=== PATIENT | male | born 1940 | race Caucasian/White ===

== ENCOUNTER 2017-03-13 07:01 | Day surgery (SDC) | payer OTHER ==
[2017-03-13] MEDS ORDERED: ceFAZolin 2 GM/DEXTROSE 100 ML IV ONE (07:22)
[2017-03-13] MEDS ORDERED: LIDOCAINE 1% 2 ML INJ ID PRN (07:29)
[2017-03-13] MEDS ORDERED: LR 1,000 ML IV ONE (07:29)
[2017-03-13] MEDS ORDERED: BUPIVACAINE 0.5% 30 ML SDV ONE (08:20)
[2017-03-13] MEDS ORDERED: MIDAZOLAM 2 MG/2 ML VIAL IVP ONE (08:39)
[2017-03-13] MEDS ORDERED: MIDAZOLAM 2 MG/2 ML VIAL ONE (08:40)
--- NOTE | 2017-03-13 08:40 | PDANEPAE ---
ANE History of Present Illness ventral hernia ANE Past Medical History Past Medical History: htn, aflutter, asthma,gout - Cardiovascular History Hx Hypertension: Yes Hx Arrhythmias: Yes Hx Chest Pain: No Hx Coronary Artery / Peripheral Vascular Disease: No Hx CHF / Valvular Disease: No Hx Palpitations: No Cardiovascular History Comment: A FLUTTER- RESOLVED W ABLATION 08/2014 - ASYMPTOM[address]IC. CT -'BORDERLINE CARDIOMEGALY' - Pulmonary History Hx COPD: No Hx Asthma/Reactive Airway Disease: Yes Hx Recent Upper Respiratory Infection: No Hx Oxygen in Use at Home: No Hx Sleep Apnea: No Sleep Apnea Screening Result - Last Documented: Positive Pulmonary History Comment: INFLAMMATION OF LUNGS OCC, POSS ASTHMA- INHALERS PRN. DENIES SLEEP APNEA- DID SUPPL O2 FOR A WHILE- LOST WT- DOESNT USE NOW. DENIES SOB W STAIRS - Neurologic History Hx Cerebrovascular Accident: No Hx Seizures: No Hx Dementia: No Neurologic History Comment: VIVAR, MIGRAINES - Endocrine History Hx Diabetes: No - Renal History Hx Renal Disorders: Yes Renal History Comment: BPH. 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 POLYP REM. CONSTIPATION OCC - Other Health History Other Health History: OA. GOUT - Chronic Pain History Chronic Pain: No - Surgical History Prior Surgeries: R BETH. 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 ABLATION FOR A FLUTTER X2. ING HERNIA COOPER ING & [facility]. FELL OFF LADDER- REP SEVERED ARTERY 2010. TURP . SCOPE R KNEE ANE Review of Systems - Exercise capacity METS (RN): 4 METS ANE Patient History - Allergies Allergies/Adverse Reactions: doxycycline Allergy (Intermediate, Verified 01/17/15 10:09) Other-Enter Comments sulfamethoxazole [From Bactrim] Allergy (Intermediate, Verified 01/17/15 10:09) Rash trimethoprim [From Bactrim] Allergy (Intermediate, Verified 01/17/15 10:09) Rash HORSE SERUM Allergy (Severe, Uncoded 01/17/15 10:09) Other-Enter Comments TAPE Allergy (Mild, Uncoded 01/17/15 10:09) Other-Enter Comments - Home Medications Home Medications: Albuterol [Proventil Inhaler HFA (*)] 1 - 2 puffs IH Q4H PRN 01/17/15 [Last Taken 08/22/16] Atorvastatin Calcium [Lipitor 20 mg (*)] 20 mg PO DAILY 01/17/15 [Last Taken 07:00] Beclomethasone Qvar 80 [Qvar 80 (*)] 1 - 2 puffs IH HS PRN 01/17/15 [Last Taken 02/20/17] Finasteride [Proscar 5 MG (*)] 5 mg PO DAILY 01/17/15 [Last Taken 03/12/17 07:00 ] Herbals/Supplements -Info Only 1 ea PO DAILY 01/17/15 [Last Taken 03/12/17 07:00 ] Multivitamins [Multivitamin (*)] 1 each PO DAILY 01/17/15 [Last Taken 03/12/17 07:00] Psyllium Husk [Metamucil] 0.52 gm PO DAILY 01/17/15 [Last Taken 03/12/17 07:00] SUMAtriptan [Imitrex 50 MG (*)] 50 mg PO DAILY PRN 01/17/15 [Last Taken 09/12/16 ] Sodium Cl Nasal [[place] (*)] 1 spray NS HS 01/17/15 [Last Taken 03/12/17] Triamterene/Hctz 37.5/25 [Maxzide-25 (*)] 1 tab PO DAILY 01/17/15 [Last Taken 07:00] diphenhydrAMINE [Benadryl 25 MG (*)] 25 mg PO HS 01/18/15 [Last Taken 12/12/16] - NPO status NPO Since - Liquids (Date): 03/12/17 NPO Since - Liquids (Time): 20:00 NPO Since - Solids (Date): 03/12/17 NPO Since - Solids (Time): 20:00 - Smoking Hx Smoking Status: Never smoked - Family Anes Hx Family Hx Anesthesia Complications: NONE ANE Labs/Vital Signs - Vital Signs Blood Pressure: 131/91 Heart Rate: 74 Respiratory Rate: 16 O2 Sat (%): 95 Height: 182.88 cm Weight: 92.986 kg ANE Physical Exam - Airway Neck exam: FROM Mallampati Score: Class 2 Mouth exam: normal dental/mouth exam - Pulmonary Pulmonary: no respiratory distress - Cardiovascular Cardiovascular: regular rate and rhythym - ASA Status ASA Status: II ANE Anesthesia Plan Anesthesia Plan: general endotracheal anesthesia
--- NOTE | 2017-03-13 08:41 | PDHPUP ---
History & Physical Update H&P update statement: This history and physical update is based on an assessment of the patient which was completed after admission or registration (within 24 hours), but prior to the surgery/procedure. H&P update: H&P reviewed & patient examined, no change in patient's condition since H&P completed
[2017-03-13] MEDS ORDERED: DEXAMETHASONE 4 MG/ML VIAL ONE (08:47)
[2017-03-13] MEDS ORDERED: fentaNYL 100 MCG/2 ML INJ ONE ×2 (08:47→08:48)
[2017-03-13] MEDS ORDERED: ROCURONIUM 50 MG/5 ML VIAL ONE (08:47)
[2017-03-13] MEDS ORDERED: LIDOCAINE 2% 100 MG/5 ML SYR ONE (08:47)
[2017-03-13] MEDS ORDERED: ONDANSETRON 4 MG/2 ML VIAL ONE (08:47)
[2017-03-13] MEDS ORDERED: PROPOFOL 200 MG/20 ML VIAL ONE (08:48)
[2017-03-13] MEDS ORDERED: NALOXONE HCL 0.4 MG/ML INJ IVP PRN (09:03)
[2017-03-13] MEDS ORDERED: HYDROmorphONE/DILAUDID 1 MG/ML SYR IVP PRN (09:03)
[2017-03-13] MEDS ORDERED: PROMETHAZINE HCL 25 MG/ML INJ IVP PRN (09:03)
[2017-03-13] MEDS ORDERED: ONDANSETRON 4 MG/2 ML VIAL IVP PRN (09:03)
[2017-03-13] MEDS ORDERED: fentaNYL 100 MCG/2 ML INJ IVP PRN (09:03)
[2017-03-13] MEDS ORDERED: PHENYLEPHRINE HCL 100 MCG/ML SYR ONE (09:19)
[2017-03-13] MEDS ORDERED: epHEDrine SULFATE 10 MG/ML SYR ONE (09:20)
--- NOTE | 2017-03-13 09:56 | POSTOPPROG ---
Post Op Note Date of Operation: 03/13/17 Surgeon: Edward Brambila Farm Contractor: Marciano DALY Anesthesiologist: Vilma Anesthesia: GET(General Endotracheal) Pre-op Diagnosis: incisional hernia Post-op Diagnosis: same Indication: incisional hernia Procedure: open incisional hernia repair with mesh Findings: incisional hernia Inf/Abcess present in the surg proc area at time of surgery?: No Depth: Deep Incisional (Fascial) EBL: Minimal
--- NOTE | 2017-03-13 10:01 | POSTANESTH ---
Post Anesthetic Evaluation Cardiovascular Status: Normal, Stable Respiratory Status: Normal, Stable Level of Consciousness/Mental Status: Can Participate in Eval Pain Control: Adequate, Prn Tx Ordered Nausea/Vomiting Control: Adequate, Prn Tx Ordered Complications Possibly Related to Anesthesia: None Noted
[2017-03-13 10:46] VITALS: O2SAT 95
[2017-03-13 10:52] VITALS: PULSE 77; RESP 16
[2017-03-13 11:54] VITALS: BP 160/103
[2017-03-13 12:52] VITALS: TEMP 97.9
== END 2017-03-13 12:12 | disposition home or self-care (01) ==
LOC: FSGY 07:01
PROVIDERS: ATTEND Surgery
PROC: 0WUF0JZ Supplement Abdominal Wall with Synthetic Substitute, Open Approach (ICD-10-PCS; principal; 2017-03-13 08:30)
DX: K43.2 Incisional hernia without obstruction or gangrene (principal); I25.10 Atherosclerotic heart disease of native coronary artery without angina pectoris; I10 Essential (primary) hypertension; E79.0 Hyperuricemia without signs of inflammatory arthritis and tophaceous disease; N40.0 Benign prostatic hyperplasia without lower urinary tract symptoms; Z96.649 Presence of unspecified artificial hip joint
CPT/HCPCS: C1781; J0690; J1100; J2001; J2250; J2370; J2405; J2704; J3010

== ENCOUNTER 2017-03-31 06:07 | Day surgery (SDC) | payer OTHER ==
[2017-03-31] MEDS ORDERED: ceFAZolin 2 GM/DEXTROSE 100 ML IV ONE (06:40)
[2017-03-31] MEDS ORDERED: LIDOCAINE 1% 2 ML INJ ID PRN (06:42)
[2017-03-31] MEDS ORDERED: LR 1,000 ML IV ONE (06:42)
[2017-03-31] MEDS ORDERED: BUPIVACAINE 0.5% 30 ML SDV ONE (07:02)
--- NOTE | 2017-03-31 07:29 | PDANEPAE ---
ANE History of Present Illness r inguinal hernia ANE Past Medical History - Cardiovascular History Hx Hypertension: Yes Hx Arrhythmias: Yes Hx Chest Pain: No Hx Coronary Artery / Peripheral Vascular Disease: No Hx CHF / Valvular Disease: No Hx Palpitations: No Cardiovascular History Comment: A FLUTTER- RESOLVED W ABLATION 08/2014 - Pulmonary History Hx COPD: No Hx Asthma/Reactive Airway Disease: Yes Hx Recent Upper Respiratory Infection: No Hx Oxygen in Use at Home: No Hx Sleep Apnea: No Sleep Apnea Screening Result - Last Documented: Positive Pulmonary History Comment: INFLAMMATION OF LUNGS OCC, POSS ASTHMA- INHALERS PRN. DENIES SLEEP APNEA- DID SUPPL O2 FOR A WHILE- LOST WT- DOESNT USE NOW. DENIES SOB W STAIRS - Neurologic History Hx Cerebrovascular Accident: No Hx Seizures: No Hx Dementia: No Neurologic History Comment: VIVAR, MIGRAINES - Endocrine History Hx Diabetes: No - Renal History Hx Renal Disorders: Yes Renal History Comment: BPH. 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 POLYP REM. CONSTIPATION OCC - Other Health History Other Health History: OA. GOUT - Chronic Pain History Chronic Pain: No - Surgical History Prior Surgeries: R FOOT 4TH TOE AMPUTATION - GOUT. ABLATION FOR A FLUTTER . ING HERNIA COOPER. FELL OFF LADDER- REP SEVERED ARTERY 2010. [facility] HERNIA. TURP . SCOPE R KNEE ANE Review of Systems Review of Systems: - Exercise capacity METS (RN): 4 METS ANE Patient History - Allergies Allergies/Adverse Reactions: doxycycline Allergy (Intermediate, Verified 01/17/15 10:09) Other-Enter Comments sulfamethoxazole [From Bactrim] Allergy (Intermediate, Verified 01/17/15 10:09) Rash trimethoprim [From Bactrim] Allergy (Intermediate, Verified 01/17/15 10:09) Rash HORSE SERUM Allergy (Severe, Uncoded 01/17/15 10:09) Other-Enter Comments TAPE Allergy (Mild, Uncoded 01/17/15 10:09) Other-Enter Comments - Home Medications Home Medications: RX: Albuterol [Proventil Inhaler HFA (*)] 1 - 2 puffs IH Q4H PRN 01/17/15 [Last Taken 08/22/16] RX: Atorvastatin Calcium [Lipitor 20 mg (*)] 20 mg PO DAILY 01/17/15 [Last Taken 03/12/17 07:00] RX: Beclomethasone Qvar 80 [Qvar 80 (*)] 1 - 2 puffs IH HS PRN 01/17/15 [Last Taken 02/20/17] RX: Finasteride [Proscar 5 MG (*)] 5 mg PO DAILY 01/17/15 [Last Taken 03/12/17 07:00] RX: Herbals/Supplements -Info Only 1 ea PO DAILY 01/17/15 [Last Taken 03/12/17 07:00] RX: Multivitamins [Multivitamin (*)] 1 each PO DAILY 01/17/15 [Last Taken 07:00] RX: Psyllium Husk [Metamucil] 0.52 gm PO DAILY 01/17/15 [Last Taken 03/12/17 07: 00] RX: SUMAtriptan [Imitrex 50 MG (*)] 50 mg PO DAILY PRN 01/17/15 [Last Taken ] RX: Sodium Cl Nasal [[place] (*)] 1 spray NS HS 01/17/15 [Last Taken ] RX: Triamterene/Hctz 37.5/25 [Maxzide-25 (*)] 1 tab PO DAILY 01/17/15 [Last Taken 03/12/17 07:00] RX: diphenhydrAMINE [Benadryl 25 MG (*)] 25 mg PO HS 01/18/15 [Last Taken ] - NPO status NPO Since - Liquids (Date): 03/30/17 NPO Since - Liquids (Time): 20:00 NPO Since - Solids (Date): 03/30/17 NPO Since - Solids (Time): 20:00 - Smoking Hx Smoking Status: Never smoked - Family Anes Hx Family Hx Anesthesia Complications: NONE ANE Labs/Vital Signs - Vital Signs Blood Pressure: 137/92 Heart Rate: 70 Respiratory Rate: 16 O2 Sat (%): 91 Height: 182.88 cm Weight: 92.986 kg ANE Physical Exam - Airway Neck exam: FROM Mallampati Score: Class 1 Mouth exam: normal dental/mouth exam - Pulmonary Pulmonary: no respiratory distress - Cardiovascular Cardiovascular: regular rate and rhythym - ASA Status ASA Status: III ANE Anesthesia Plan Anesthesia Plan: general endotracheal anesthesia
[2017-03-31] MEDS ORDERED: LIDOCAINE 2% 5 ML SDV ONE (07:30)
[2017-03-31] MEDS ORDERED: ONDANSETRON 4 MG/2 ML VIAL ONE (07:30)
[2017-03-31] MEDS ORDERED: DEXAMETHASONE 4 MG/ML VIAL ONE (07:30)
[2017-03-31] MEDS ORDERED: ROCURONIUM 50 MG/5 ML VIAL ONE (07:30)
[2017-03-31] MEDS ORDERED: fentaNYL 100 MCG/2 ML INJ ONE ×3 (07:31→08:02)
[2017-03-31] MEDS ORDERED: PROPOFOL 200 MG/20 ML VIAL ONE ×2 (07:31→08:02)
[2017-03-31] MEDS ORDERED: HYDROmorphONE/DILAUDID 1 MG/ML INJ IVP PRN (07:49)
[2017-03-31] MEDS ORDERED: PROMETHAZINE HCL 25 MG/ML INJ IVP PRN (07:49)
[2017-03-31] MEDS ORDERED: fentaNYL 100 MCG/2 ML INJ IVP PRN (07:49)
[2017-03-31] MEDS ORDERED: LABETALOL HCL 50 MG/10 ML SYR IVP PRN (07:49)
[2017-03-31] MEDS ORDERED: NALOXONE HCL 0.4 MG/ML INJ IVP PRN (07:49)
[2017-03-31] MEDS ORDERED: ONDANSETRON 4 MG/2 ML VIAL IVP PRN (07:49)
--- NOTE | 2017-03-31 08:41 | POSTOPPROG ---
Post Op Note Date of Operation: 03/31/17 Surgeon: Edward Brambila Sportspersons: Anahi Gunn Anesthesiologist: Vilma Anesthesia: GET(General Endotracheal) Pre-op Diagnosis: recurrent incarcerated right inguinal hernia Post-op Diagnosis: same Procedure: lap repair of recurrent incarcerated RIH with mesh Findings: direct defect Inf/Abcess present in the surg proc area at time of surgery?: No EBL: Minimal Complications: none Specimen(s): none
[2017-03-31] MEDS ORDERED: OXYCODONE/APAP 5/325 TAB PO PRN (08:45)
--- NOTE | 2017-03-31 09:34 | POSTANESTH ---
Post Anesthetic Evaluation Cardiovascular Status: Normal, Stable Respiratory Status: Normal, Stable Level of Consciousness/Mental Status: Can Participate in Eval Pain Control: Adequate, Prn Tx Ordered Complications Possibly Related to Anesthesia: None Noted
[2017-03-31 09:53] VITALS: BP 152/93; PULSE 72; RESP 14; TEMP 97.9; O2SAT 95
--- NOTE | 2017-04-01 13:59 | GOP ---
[f rep st] OPERATIVE REPORT DATE OF OPERATION: SURGEON: Edward Brambila MD SHIFT STACKER: MALIKA Paul ANESTHESIOLOGIST: Dr. Esparza. PREOPERATIVE DIAGNOSIS: Incarcerated recurrent right inguinal hernia. POSTOPERATIVE DIAGNOSIS: Incarcerated recurrent right inguinal hernia. PROCEDURE PERFORMED: Laparoscopic repair of incarcerated recurrent right inguinal hernia, and exploration of the left. FINDINGS: Recurrent incarcerated direct right inguinal hernia with viable intestines DESCRIPTION OF PROCEDURE: The patient was taken to the operating room, where he received satisfactory general endotracheal anesthesia by Dr. Esparza. He was placed in supine position, prepped and draped in usual sterile fashion. An infraumbilical incision was made. Dissection was carried down the rectus sheath , which was incised. A subfascial tunnel was developed in the preperitoneal space that was dissected free with a balloon dissector, which was replaced with CO2 insufflation trocar. Two other trocars were placed in the midline under direct vision. Herminio's ligament was exposed bilaterally. The cords were mobilized bilaterally. There were no indirect sacs. On the right, an incarcerated recurrent direct right inguinal hernia was encountered. This was carefully dissected free and eventually reduced, and the bowel contents appeared to be viable and intact. The Herminio ligament was exposed. A Covidien polyester mesh patch was placed over the inguinal floor, anchored in place with AbsorbaTack, securing it to Herminio's ligament, to the lacunar ligament, and to the anterior abdominal wall, and the lateral abdominal wall outside the internal ring. Hemostasis was assured. The left side was explored and no recurrent hernia could be seen on the left. The peritoneum was re-tacked up over the mesh. Trocars were removed under direct vision. The pneumoperitoneum was released. Trocar sites were closed with 0 Vicryl for the fascia, 4-0 Monocryl subcuticular stitch for the skin. All layers infiltrated with 0.5% Marcaine. /[id number]/MODL MTDD
== END 2017-03-31 10:25 | disposition home or self-care (01) ==
LOC: FSGY 06:07
PROVIDERS: ATTEND Surgery
PROC: 0YU64JZ Supplement Left Inguinal Region with Synthetic Substitute, Percutaneous Endoscopic Approach (ICD-10-PCS; principal; 2017-03-31 07:30)
DX: K40.31 Unilateral inguinal hernia, with obstruction, without gangrene, recurrent (principal); Z96.641 Presence of right artificial hip joint
CPT/HCPCS: 49651; C1727; C1781; J0690; J1100; J2405; J2704; J3010

== ENCOUNTER 2018-06-19 06:44 | Day surgery (SDC) | payer OTHER ==
--- NOTE | 2018-06-17 10:41 | GHP ---
DATE OF ADMISSION: 06/19/2018 HISTORY OF PRESENT ILLNESS: The patient is a 77-year-old male who is being admitted today for a laparoscopic possible open recurrent ventral hernia repair. The patient had an umbilical hernia repair and mesh in 2010. Since then, there has been a bulge in the area that steadily enlarged and so he underwent open ventral hernia repair with Dr. Brambila last year. After this, he was also found to have a right inguinal hernia and underwent laparoscopic right inguinal hernia repair. He comes in with a bulge above his previous ventral hernia site. He denies regularly heavy lifting or nausea, vomiting, diarrhea, constipation, shortness of breath, or cough. He does report nocturia and has a history of TURP procedure for an enlarged prostate. PAST MEDICAL HISTORY: Includes asthma, atrial flutter, coronary artery disease , benign prostatic hypertrophy, hypertension, gout, high blood pressure, hyperuricemia. PAST SURGICAL HISTORY: As described above includes multiple hernia repairs, also ablation for atrial flutter, right arthroscopic knee surgery, right hip replacement, TURP. MEDICATIONS: Include albuterol, allopurinol, vitamin C, aspirin, atorvastatin, Centrum [place] Men, diphenhydramine, finasteride, fluticasone, Imitrex, levalbuterol, psyllium husk, QVAR inhaler, triamterene hydrochlorothiazide, vitamin D. ALLERGIES: Include amlodipine, Bactrim, doxycycline, and lisinopril. FAMILY MEDICAL HISTORY: Noncontributory. SOCIAL HISTORY: The patient walks about a mile a day. He has never smoked. He does drink alcohol on occasion. REVIEW OF SYSTEMS: Otherwise negative. PHYSICAL EXAMINATION: GENERAL: A well-appearing 77-year-old, nontoxic male in no acute distress. HEENT: Normocephalic, atraumatic. CHEST: Clear to auscultation bilaterally. CARDIAC: Regular rate and rhythm. ABDOMEN: Soft, nontender with well-healed scar and reducible ventral bulge. EXTREMITIES: Warm and dry. PSYCH: Normal mood and affect. IMPRESSION: This is a 77-year-old male with a recurrent ventral hernia. PLAN: To proceed with a laparoscopic ventral hernia repair. Patient understands this could be converted to an open repair. We will likely use mesh. Risks and options have been discussed including, but not limited to, bleeding, infection, nerve injury, bowel injury, damage to surrounding structures, and recurrent hernia, and he requests to proceed. /[id number]/MODL MTDD
--- NOTE | 2018-06-18 19:22 | PDANEPAE ---
ANE History of Present Illness 77 yo with recurrent ventral/umbilical hernia ANE Past Medical History - Cardiovascular History Hx Hypertension: Yes Hx Arrhythmias: Yes Hx Chest Pain: No Hx Coronary Artery / Peripheral Vascular Disease: No Hx CHF / Valvular Disease: No Hx Palpitations: No Cardiovascular History Comment: A FLUTTER- RESOLVED W ABLATION 08/2014 - Pulmonary History Hx COPD: No Hx Asthma/Reactive Airway Disease: Yes Hx Recent Upper Respiratory Infection: No Hx Oxygen in Use at Home: No Hx Sleep Apnea: No Sleep Apnea Screening Result - Last Documented: Positive Pulmonary History Comment: ASTHMA TRIGGERS COLD WEATHER,URI'S,ALLERGIES - Neurologic History Hx Cerebrovascular Accident: No Hx Seizures: No Hx Dementia: No Neurologic History Comment: VIVAR, MIGRAINES - Endocrine History Hx Diabetes: No Hypothyroid: No Hyperthyroid: No Obesity: no - Renal History Hx Renal Disorders: Yes Renal History Comment: BPH. HX TURP '. 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 HX OF COLON POLYP CONSTIPATION - Other Health History Other Health History: OA. GOUT - Chronic Pain History Chronic Pain: Yes (UMBILICAL HERNIA) - Surgical History Prior Surgeries: RT ING HERNIA 03/31/17. 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 ABLATION FOR A FLUTTER . ING HERNIA COOPER. FELL OFF LADDER- REP SEVERED ARTERY 2010. [facility] HERNIA. TURP . SCOPE R KNEE ' ANE Review of Systems Review of systems is: negative Review of Systems: - Exercise capacity METS (RN): 4 METS ANE Patient History - Allergies Allergies/Adverse Reactions: doxycycline Allergy (Intermediate, Verified 01/17/15 10:09) Other-Enter Comments sulfamethoxazole [From Bactrim] Allergy (Intermediate, Verified 01/17/15 10:09) Rash trimethoprim [From Bactrim] Allergy (Intermediate, Verified 01/17/15 10:09) Rash HORSE SERUM Allergy (Severe, Uncoded 01/17/15 10:09) Other-Enter Comments TAPE Allergy (Mild, Uncoded 01/17/15 10:09) Other-Enter Comments - Home Medications Home medications: home medication list seen and reviewed Home Medications: Albuterol [Proventil Inhaler HFA (*)] 1 - 2 puffs IH Q4H PRN 01/17/15 [Last Taken 3 Months Ago ~03/19/18] Atorvastatin Calcium [Lipitor 20 mg (*)] 20 mg PO DAILY 01/17/15 [Last Taken 05:30] Beclomethasone Qvar 80 [Qvar 80] 1 - 2 puffs IH HS PRN 01/17/15 [Last Taken ] SUMAtriptan [Imitrex 50 MG (*)] 50 mg PO DAILY PRN 01/17/15 [Last Taken 1 Year Ago ~06/19/17] Triamterene/Hctz 37.5/25 [Maxzide-25 (*)] 1 tab PO DAILY 01/17/15 [Last Taken ] Advil DAILY 06/16/18 [Last Taken 2 Days Ago ~06/17/18] Allopurinol DAILY 06/16/18 [Last Taken 06/19/18 05:30] Azelastine HS 06/16/18 [Last Taken 06/18/18] Proscar 5 MG (*) DAILY 06/16/18 [Last Taken 06/19/18 05:30] Tylenol 06/19/18 [Last Taken 06/18/18] - Anes Hx Anes Hx: no prior problems - Smoking Hx Smoking Status: Never smoked - Alcohol Use Alcohol Use: Rarely - Family Anes Hx Family Anes Hx: none Family Hx Anesthesia Complications: NONE ANE Labs/Vital Signs - Vital Signs Height: 182.88 cm Weight: 90.718 kg ANE Physical Exam - Airway Neck exam: FROM Mallampati Score: Class 2 Mouth exam: normal dental/mouth exam - Pulmonary Pulmonary: no respiratory distress, clear to auscultation - Cardiovascular Cardiovascular: regular rate and rhythym - ASA Status ASA Status: III ANE Anesthesia Plan Anesthesia Plan: general endotracheal anesthesia
[2018-06-19] MEDS ORDERED: ceFAZolin 2 GM/DEXTROSE 100 ML IV ONE (06:57)
[2018-06-19] MEDS ORDERED: LR 1,000 ML IV ONE (06:57)
[2018-06-19] MEDS ORDERED: PROPOFOL 200 MG/20 ML VIAL ONE (07:45)
[2018-06-19] MEDS ORDERED: fentaNYL 250 MCG/5 ML INJ ONE (07:45)
[2018-06-19] MEDS ORDERED: ROCURONIUM 50 MG/5 ML VIAL ONE (07:46)
[2018-06-19] MEDS ORDERED: LIDOCAINE 2% 5 ML SDV ONE (07:46)
[2018-06-19] MEDS ORDERED: LABETALOL HCL 5 MG/ML 20 ML MDV ONE (08:24)
[2018-06-19] MEDS ORDERED: DEXAMETHASONE 4 MG/ML VIAL ONE (08:24)
[2018-06-19] MEDS ORDERED: LABETALOL HCL 20 MG/4 ML INJ IVP PRN (08:27)
[2018-06-19] MEDS ORDERED: ALBUTEROL 3 ML DEYVIAL IH PRN (08:27)
[2018-06-19] MEDS ORDERED: MEPERIDINE 25 MG/0.5 ML AMP IVP PRN (08:27)
[2018-06-19] MEDS ORDERED: NALOXONE HCL 0.4 MG/ML INJ IVP PRN (08:27)
[2018-06-19] MEDS ORDERED: fentaNYL 100 MCG/2 ML INJ IVP PRN (08:27)
[2018-06-19] MEDS ORDERED: PROMETHAZINE HCL 25 MG/ML INJ IVP PRN (08:27)
[2018-06-19] MEDS ORDERED: HYDROmorphONE/DILAUDID 2 MG/ML INJ IVP PRN (08:27)
[2018-06-19] MEDS ORDERED: ONDANSETRON 4 MG/2 ML VIAL ONE (08:44)
[2018-06-19] MEDS ORDERED: KETOROLAC 30 MG/1 ML SDV ONE (08:50)
[2018-06-19] MEDS ORDERED: BUPIVACAINE 0.5% 30 ML SDV ONE (08:57)
--- NOTE | 2018-06-19 09:08 | POSTOPPROG ---
Post Op Note Date of Operation: 06/19/18 Surgeon: Edward Brambila Sonar Subsystem Equipment Operator: Kavya Anesthesiologist: Irma Anesthesia: GET(General Endotracheal) Pre-op Diagnosis: Vental hernia Post-op Diagnosis: same Indication: same Procedure: Lap ventral hernia repair, AUDRA Findings: Adhesions near old mesh, small defect Inf/Abcess present in the surg proc area at time of surgery?: No Depth: Organ Space EBL: Minimal
[2018-06-19 11:53] VITALS: BP 127/84
--- NOTE | 2018-06-19 17:14 | GOP ---
DATE OF OPERATION: 06/19/2018 SURGEON: Edward Brambila MD FLIGHT CONTROL TOWER OPERATOR: Dinah Hoff, nurse practitioner ANESTHESIOLOGIST: Dr. Solis PREOPERATIVE DIAGNOSIS: Recurrent ventral hernia. POSTOPERATIVE DIAGNOSIS: Recurrent ventral hernia. PROCEDURE PERFORMED: Laparoscopic ventral hernia repair with mesh. FINDINGS: Patient was found to have a large amount of adhesions to the anterior abdominal wall and a small 2 cm ventral hernia defect above a previous ventral hernia repair. DESCRIPTION OF PROCEDURE: Patient was taken to the operating room where he received a satisfactory g eneral endotracheal anesthesia by Dr. Solis. He was placed in supine position, prepped and draped in usual sterile fashion. A short incision was made in the left upper quadrant. A Veress needle was inserted. Pneumoperitoneu m was established. A trocar was introduced. Laparoscope introduced. Good visualization was obtaine d. 2 other trocars placed in the lower abdomen under direct vision. Adhesions were then taken down off the anterior abdominal wall carefully with no evidence of any justin l involvement or injury. This was done with electrocautery exposing a small ventral defect above the previous umbilical hernia repair. A Covidien dual-sided mesh patch was introduced, was then anchore d in place covering the entire defect for at least an inch and a half in all directions. A double ro w of sasha was used circumferentially. Hemostasis was assured. Omental adhesions that had been ta krystle down were hemostatic. Trocars removed under direct vision. Pneumoperitoneum was released. Trocar sites were closed with 0 Vicryl for the fascia, 4-0 Monocryl subcuticular stitch for the skin, and all layers were infiltrate d with 0.5% Marcaine. He tolerated procedure well. Blood loss negligible, no complications, taken t o the recovery room in good condition. /[id number]/MODL
== END 2018-06-19 11:40 | disposition home or self-care (01) ==
LOC: FSGY 06:44
PROVIDERS: ATTEND Surgery
PROC: 0WUF4JZ Supplement Abdominal Wall with Synthetic Substitute, Percutaneous Endoscopic Approach (ICD-10-PCS; principal; 2018-06-19 08:15)
DX: K43.2 Incisional hernia without obstruction or gangrene (principal); I48.92 Unspecified atrial flutter; J45.909 Unspecified asthma, uncomplicated; I25.10 Atherosclerotic heart disease of native coronary artery without angina pectoris; N40.0 Benign prostatic hyperplasia without lower urinary tract symptoms; I10 Essential (primary) hypertension; M10.9 Gout, unspecified; Z96.641 Presence of right artificial hip joint
CPT/HCPCS: C1781; J0690; J1100; J1885; J2405; J2704; J3010